=== PATIENT | female | born 1950 | race Caucasian/White ===

== ENCOUNTER 2017-07-27 21:07 | Emergency (ER) | payer BC, MEDICARE ==
[~2017-07-27 21:07] MED LIST: ADRENALIN ONE
--- NOTE | 2017-07-27 22:13 | Emergency Department Report ---
ED CPR HPI - General Chief Complaint: Cardiac Arrest/CPR Stated Complaint: CARDIAC ARREST Time Seen by Provider: 07/27/17 21:19 Source: EMS Mode of arrival: Stretcher Limitations: Other - History of Present Illness Initial Comments: Is a 66-year-old female with a history of Parkinson's disease as well as some other chronic conditions per the family who was apparently talking to the family about 20 minutes before she suddenly stopped and collapsed. EMS arrived on scene and began CPR. They did give her 1 amp of epinephrine and they did intubate her as well. The family however reports that she does not desire to have resuscitation. The patient is not from the area locally and she does have a DO NOT RESUSCITATE previously. CPR was in progress upon arrival into the emergency room. Patient was found to be asystole upon EMS arrival. The patient has not had any spontaneous respirations. Pupils are fixed and dilated. No pulse was appreciated. MD Complaint: stopped breathing Place: home Bystander CPR Performed: Yes Initial Findings in the Field: unresponsive Associated Symptoms: other Treatments Prior to Arrival: intubation, chest compressions, epinephrine mgs # - Related Data Home Medications Medication Instructions Recorded Confirmed Last Taken Aspirin [Aspirin BABY CHEW TAB] 81 mg PO QDAY 01/29/15 03/02/15 01/27/15 Carbidopa/Levodopa 1 tab PO TID 01/29/15 03/02/15 01/29/15 [Carbidopa-Levodopa 25-100 Tab] Lisinopril 1 tab PO DAILY 01/29/15 03/02/15 01/28/15 QUEtiapine [SEROquel] 25 mg PO HS 01/29/15 03/02/15 01/28/15 Rasagiline Mesylate [Azilect] 0.5 mg PO DAILY 01/29/15 03/02/15 01/28/15 Rosuvastatin Calcium [Crestor] 1 tab PO DAILY 01/29/15 03/02/15 01/28/15 Sitagliptin Phos/Metformin HCl 1 tab PO QDAY 01/29/15 03/02/15 Unknown [Janumet XR 100-1,000 mg] Verapamil HCl [Verapamil ER] 1 tab PO DAILY 01/29/15 03/02/15 01/28/15 glipiZIDE [Glipizide] 5 mg PO BID 01/29/15 03/02/15 Unknown Previous Rx's Medication Instructions Recorded Last Taken Type Aspirin [Aspirin BABY CHEW TAB] 81 mg PO QDAY tab.chew 03/04/15 Unknown Rx AtorvaSTATin [Lipitor] 40 mg PO QHS tablet 03/04/15 Unknown Rx Azithromycin [Zithromax Z-COLTON] 250 mg PO DAILY #1 pack 03/04/15 Unknown Rx Ipratropium/Albuterol Sulfate 1 ampul IH Q8HR #60 ampul.neb 03/04/15 Unknown Rx [Duoneb 0.5 mg-3 mg/3 ml Soln] Rasagiline Mesylate (Nf) [Azilect 0.5 mg PO QDAY tablet 03/04/15 Unknown Rx (Nf)] glipiZIDE [Glucotrol] 5 mg PO BIDDIAB tablet 03/04/15 Unknown Rx methylPREDNISolone [Medrol Dose 4 mg PO QAM #1 pack 03/04/15 Unknown Rx Colton] Allergies Allergy/AdvReac Type Severity Reaction Status Date / Time meperidine HCl [From Demerol] Allergy Swelling Verified 01/29/15 11:48 ED Review of Systems ROS: Stated complaint: CARDIAC ARREST Other details as noted in HPI Comment: Unobtainable due to pts medical conditions ED Past Medical Hx - Past Medical History Previous Medical History?: Yes Hx Hypertension: Yes Hx Diabetes: Yes Hx COPD: Yes Additional medical history: high cholesterol, LBBB, Parkinsons, bipolar - Surgical History Past Surgical History?: Yes Additional Surgical History: Bladder mesh, hysterectomy, bilateral shoulder - Social History Smoking Status: Unknown if ever smoked - Medications Home Medications: Home Medications Medication Instructions Recorded Confirmed Last Taken Type Aspirin [Aspirin BABY CHEW TAB] 81 mg PO QDAY 01/29/15 03/02/15 01/27/15 History Carbidopa/Levodopa 1 tab PO TID 01/29/15 03/02/15 01/29/15 History [Carbidopa-Levodopa 25-100 Tab] Lisinopril 1 tab PO DAILY 01/29/15 03/02/15 01/28/15 History QUEtiapine [SEROquel] 25 mg PO HS 01/29/15 03/02/15 01/28/15 History Rasagiline Mesylate [Azilect] 0.5 mg PO DAILY 01/29/15 03/02/15 01/28/15 History Rosuvastatin Calcium [Crestor] 1 tab PO DAILY 01/29/15 03/02/15 01/28/15 History Sitagliptin Phos/Metformin HCl 1 tab PO QDAY 01/29/15 03/02/15 Unknown History [Janumet XR 100-1,000 mg] Verapamil HCl [Verapamil ER] 1 tab PO DAILY 01/29/15 03/02/15 01/28/15 History glipiZIDE [Glipizide] 5 mg PO BID 01/29/15 03/02/15 Unknown History Aspirin [Aspirin BABY CHEW TAB] 81 mg PO QDAY tab.chew 03/04/15 Unknown Rx AtorvaSTATin [Lipitor] 40 mg PO QHS tablet 03/04/15 Unknown Rx Azithromycin [Zithromax Z-COLTON] 250 mg PO DAILY #1 pack 03/04/15 Unknown Rx Ipratropium/Albuterol Sulfate 1 ampul IH Q8HR #60 ampul.neb 03/04/15 Unknown Rx [Duoneb 0.5 mg-3 mg/3 ml Soln] Rasagiline Mesylate (Nf) [Azilect 0.5 mg PO QDAY tablet 03/04/15 Unknown Rx (Nf)] glipiZIDE [Glucotrol] 5 mg PO BIDDIAB tablet 03/04/15 Unknown Rx methylPREDNISolone [Medrol Dose 4 mg PO QAM #1 pack 03/04/15 Unknown Rx Colton] ED Physical Exam - General Limitations: Other General appearance: other (unresponsive) - Head Head exam: Present: atraumatic - Eye Eye exam: Present: other (pupils are fixed and dilated) - Respiratory Respiratory exam: Present: other (no spontaneous respirations) - Cardiovascular Cardiovascular Exam: Present: other (no heart sounds appreciated, no pulse appreciated.) - GI/Abdominal GI/Abdominal exam: Present: soft - Skin Skin exam: Present: cyanosis, pallor ED Course - Reevaluation(s) Reevaluation #1: 07/27/17 22:18 The family that further CPR at this time would be futile. They express understanding and wish to continue with her desire to be a DO NOT RESUSCITATE. Therefore we will stop CPR. Patient pronounced at 911pm. Critical care attestation.: If time is entered above; I have spent that time in minutes in the direct care of this critically ill patient, excluding procedure time. ED Disposition Clinical Impression: Cardiopulmonary arrest Disposition: DC-20 Is pt being admited?: No Referrals: FINA HURLEY MD [Primary Care Provider] - 3-5 Days
== END 2017-07-27 22:42 ==
LOC: ED 21:07
DX: I46.9 Cardiac arrest, cause unspecified (principal); I10 Essential (primary) hypertension; E11.9 Type 2 diabetes mellitus without complications; J44.9 Chronic obstructive pulmonary disease, unspecified; E78.00 Pure hypercholesterolemia, unspecified; G20 Parkinson's disease; F31.9 Bipolar disorder, unspecified; Z90.710 Acquired absence of both cervix and uterus; Z88.6 Allergy status to analgesic agent
CPT/HCPCS: 31500; 92950; 99285; J0171